=== PATIENT | male | born 1945 | race Caucasian/White ===

== ENCOUNTER 2017-03-04 19:38 | Observation (INO) | payer OTHER ==
[~2017-03-04] VITALS: Ht 182.9 cm; Wt 89.8 kg
[2017-03-04 19:53] VITALS: BP 149/81; PULSE 76; TEMP 98.9
[2017-03-04] MEDS ORDERED: REGLAN 10MG10 MG/TAB PO (21:00)
[2017-03-04] MEDS ORDERED: PRIL40 PO (21:01)
[2017-03-04] MEDS ORDERED: ZOCOR 20MG20 MG PO (21:02)
[2017-03-04 21:41] VITALS: BP 127/67; PULSE 67; TEMP 98.9
[2017-03-05] VITALS (10 sets, daily range): BP systolic 108–154; BP diastolic 58–78; PULSE 56–65; TEMP 98.3–99
[2017-03-05 06:51] LABS: BASO % 0.3 % (0.0-2.0); EOS # 0.1 (0.0-0.7); EOS % 2.1 % (0-4.0); GRAN # 4.9 (1.4-6.5); GRAN % 73.4 % (42.2-75.2); HEMATOCRIT 40.4 % (42.0-52.0); HEMOGLOBIN 14.1 g/dl (13.5-18.0); LYMPH # 0.8 (1.2-3.4); LYMPH % 12.5 % (20.0-51.0); MEAN CELL VOLUME 78 fl (80.0-100.0); MEAN CORPUSCULAR HEMOGLOBIN 27 pg (27.0-31.0); MEAN CORPUSCULAR HGB CONC 35 g/dl (33.0-37.0); MONO # 0.7 (0.1-0.6); MONO % 11.1 % (1.7-9.3); PLATELET COUNT 162 K/mm3 (130-400); RED BLOOD COUNT 5.17 M/mm3 (4.20-5.60); REDCELL DISTRIBUTION WIDTH-CV 12.5 % (11.5-14.5); WHITE BLOOD COUNT 6.7 K/mm3 (4.8-10.8)
[2017-03-05 07:07] LABS: ADJUSTED CALCIUM 9.3 mg/dL (8.4-10.2); ALBUMIN 3.4 gm/dL (3.5-5.0); BILIRUBIN,TOTAL 1.2 mg/dL (0.0-1.0); C-REACTIVE PROTEIN 4.5 mg/dL (0.0-0.9); CALCIUM 8.8 mg/dL (8.4-10.2); CREATININE, serum 0.96 mg/dL (0.66-1.25); TOTAL PROTEIN 6.1 gm/dL (6.4-8.2)
[2017-03-05] MEDS ORDERED: NORCO 325 MG-51 TAB PO (14:44)
== END 2017-03-05 15:09 | disposition home or self-care (01) ==
LOC: SURG 19:38
PROVIDERS: Surgery
DX: K35.80 Unspecified acute appendicitis (principal); G47.33 Obstructive sleep apnea (adult) (pediatric); K31.84 Gastroparesis; M19.90 Unspecified osteoarthritis, unspecified site
CPT/HCPCS: G0378; G0379; J1100; J2270; J2405; J2704; J2710; J3010; J7120